=== PATIENT | female | born 1960 | race Caucasian/White ===

== ENCOUNTER 2019-09-07 15:51 | Emergency (ER) | payer MEDICAID, SELFPAY ==
--- NOTE | 2019-09-07 16:30 | HMH.EDUTC ---
[facility] [place] Impression: COPD exacerbation Disposition: Home, Self-Care Condition on Discharge: Good Instructions: How to Quit Tobacco Products, Chronic Obstructive Pulmonary Disease, DI for Chronic Obstructive Pulmonary Disease Additional Instructions: Drink plenty of fluids. Take tylenol or ibuprofen for pain or fever. Take the medications as directed. Follow up with your regular doctor. GO TO THE ER FOR ANY WORSENING SYMPTOMS Prescriptions: Albuterol Sulfate [Albuterol Sulfate Hfa] 2 puffs IH Q6HP PRN 30 Days #1 [email or web address] PRN Reason: Shortness Of Breath Transmission Status: Pending to [facility] predniSONE [Prednisone 20mg Tab] 20 mg PO BID 5 Days #10 tab Transmission Status: Pending to [facility] Azithromycin [Z-Scott 250mg Tab*] 250 mg PO UD DOSE PK #6 tab Transmission Status: Pending to [facility] Referrals: PCP,No [Primary Care Provider] - Time of Disposition: 16:48 Medical Decision Making - Medical Records Medical records reviewed: No: I reviewed the patient's medical records. - Gary Inquiry Pt receiving controlled substance: No Vital Signs: 09/07/19 16:36 Temperature 98.5 F Temperature Source Oral Pulse Rate [Right Brachial] 74 Respiratory Rate 20 Blood Pressure [Right Arm] 181/99 H Blood Pressure Mean [Right Arm] 126 Blood Pressure Source [Right Arm] Automatic Cuff Blood Pressure Position [Right Arm] Sitting 02 Sat by Pulse Oximetry 97 Oxygen Delivery Method Room Air [facility] [place] - General Stated complaint: SOB,Cough Time Seen by Provider: 09/07/19 16:40 - History of Present Illness Provider Complaint: She c/o cough and congestion for the past 4 days. She has a history of copd. She continues to smoke cigarettes. - Related Data Previous Rx's Medication Instructions Recorded Albuterol Sulfate [Albuterol 2 puffs IH Q6HP PRN 30 Days #1 09/07/19 Sulfate Hfa] [email or web address] Azithromycin [Z-Scott 250mg Tab*] 250 mg PO UD DOSE PK #6 tab 09/07/19 predniSONE [Prednisone 20mg 20 mg PO BID 5 Days #10 tab 09/07/19 Tab] Allergies Allergy/AdvReac Type Severity Reaction Status Date / Time No Known Allergies Allergy Verified 09/07/19 16:39 [facility] History - Hepatitis A Screen Attestation statement:: This patient has been screened for Hepatitis A risk factors. I have reviewed the patient's past medical history: Yes ROS Obtained: Yes All systems reviewed & no additional complaints - Constitutional Constitutional: Denies chills, Denies fever(s), Reports poor appetite, Denies malaise - Eyes Eyes: Denies eye discharge - ENT Ears, Nose, Mouth, and Throat: Denies dizziness, Denies otalgia, Reports sore throat - Cardiovascular Cardiovascular: Denies chest pain - Respiratory Respiratory: Yes chest congestion, Yes cough, No dyspnea, No coughing up blood, No stridor, No wheezing Physical Exam - General General appearance: alert, in no apparent distress - Head Head exam: atraumatic, normocephalic, normal inspection - Eye Eye exam: Present: normal appearance, PERRL, EOMI - ENT ENT exam: Present: normal exam, normal oropharynx, mucous membranes moist, TM's normal bilaterally, normal external ear exam - Neck Neck exam: Present: normal inspection, full ROM, trachea midline. Absent: meningismus, lymphadenopathy - Chest Chest inspection: Present: normal inspection, symmetric chest wall rise. Absent: tenderness - Respiratory Respiratory exam: Present: normal lung sounds bilaterally. Absent: respiratory distress - Cardiovascular Cardiovascular exam: Present: regular rate, normal rhythm. Absent: JVD - Abdominal Exam Abdominal exam: Present: soft, normal bowel sounds. Absent: distention, tenderness, guarding - Extremities Exam Extremities exam: Present: normal inspection, full ROM, normal capillary refill. Absent: calf tenderness - Back Exam Back exam: Present: normal inspection. Absent: tende
[2019-09-07 16:36] VITALS: BP 181/99; PULSE 74; RESP 20; TEMP 36.9; O2SAT 97; BMI 22.4
[2019-09-07 16:54] VITALS: BP 181/99; PULSE 74; RESP 20; TEMP 36.9; O2SAT 97
== END 2019-09-07 16:58 | disposition home or self-care (01) ==
PROVIDERS: Emergency Provider Nurse Practitioner Family
DX: J44.1 Chronic obstructive pulmonary disease with (acute) exacerbation (principal); F17.210 Nicotine dependence, cigarettes, uncomplicated; Z79.899 Other long term (current) drug therapy
CPT/HCPCS: 99201

== ENCOUNTER → 2020-05-15 11:12 | Outpatient (POV) | payer MEDICAID, SELFPAY | PROVIDERS: Visit Provider Nurse Practitioner Family | DX: Z00.00 Encounter for general adult medical examination without abnormal findings (principal) ==

== ENCOUNTER 2023-01-03 19:15 | Emergency (ER) | payer MEDICAID, SELFPAY ==
[2023-01-03] VITALS (7 sets, daily range): BP systolic 160–192; BP diastolic 83–97; PULSE 53–73; RESP 18; TEMP 36.4–36.6; O2SAT 94–97; BMI 18.8
--- NOTE | 2023-01-03 19:31 | CT_ITS ---
PROCEDURE INFORMATION: Exam: CT Abdomen And Pelvis With Contrast Exam date and time: 01/03/2023 9:05 PM Age: 62 years old Clinical indication: Abdominal pain; Additional info: Lower abdominal pain TECHNIQUE: Imaging protocol: Computed tomography of the abdomen and pelvis with contrast. Radiation optimization: All CT scans at this facility use at least one of these dose optimization techniques: automated exposure control; mA and/or kV adjustment per patient size (includes targeted exams where dose is matched to clinical indication); or iterative reconstruction. Contrast material: ISOVUE; Contrast volume: 70 ml; Contrast route: IV; REPORTING DATA: Count of CT and Cardiac NM exams in prior 12 months: This patient has received 0 known CTs and 0 known cardiac nuclear medicine studies in the 12 months prior to the current study. COMPARISON: No relevant prior studies available. FINDINGS: Liver: Normal. No mass. Gallbladder and bile ducts: Small calcified gallstones noted in the gallbladder. Gallbladder appears mildly distended. No significant gallbladder wall thickening. Mild diffuse biliary ductal dilation. Pancreas: Normal. No ductal dilation. Spleen: Normal. No splenomegaly. Adrenal glands: Normal. No mass. Kidneys and ureters: Normal. No hydronephrosis. Stomach and bowel: Unremarkable. No obstruction. No mucosal thickening. Appendix: No evidence of appendicitis. Intraperitoneal space: Unremarkable. No free air. No significant fluid collection. Vasculature: Significant diffuse mural thrombus and scattered atherosclerotic calcification of the aorta and iliac arteries. No evidence of aneurysm or dissection. Lymph nodes: Unremarkable. No enlarged lymph nodes. Urinary bladder: Unremarkable as visualized. Reproductive: Unremarkable as visualized. Bones/joints: Unremarkable. No acute fracture. Soft tissues: Unremarkable. IMPRESSION: 1. Cholelithiasis with mildly distended gallbladder and mild biliary ductal dilation. No calcified intraductal stone evident. 2. Significant atherosclerotic changes of the aorta without evidence of aneurysm or dissection.
--- NOTE | 2023-01-03 19:31 | CT_ITS ---
PROCEDURE INFORMATION: Exam: CTA Chest With Contrast Exam date and time: 01/03/2023 9:05 PM Age: 62 years old Clinical indication: Cough and shortness of breath; Additional info: Cough, SOA TECHNIQUE: Imaging protocol: Computed tomographic angiography of the chest with contrast. Exam focused on the arteries. 3D rendering (Not supervised by radiologist): MIP and/or 3D reconstructed images were created by the technologist. Radiation optimization: All CT scans at this facility use at least one of these dose optimization techniques: automated exposure control; mA and/or kV adjustment per patient size (includes targeted exams where dose is matched to clinical indication); or iterative reconstruction. Contrast material: ISOVUE; Contrast volume: 70 ml; Contrast route: INTRAVENOUS (IV); REPORTING DATA: Count of CT and Cardiac NM exams in prior 12 months: This patient has received 0 known CTs and 0 known cardiac nuclear medicine studies in the 12 months prior to the current study. COMPARISON: No relevant prior studies available. FINDINGS: Pulmonary arteries: Normal. No pulmonary emboli. Aorta: Mild atherosclerotic calcification of the aorta. No evidence of aneurysm or dissection. Thyroid: Thyroid gland appears moderately enlarged but otherwise unremarkable. Lungs: Mild changes of emphysema in the upper lungs. Small right lower lobe calcified granuloma. 6.4 mm subpleural noncalcified nodule in the posterior left lower lobe (axial image 78). 4 mm noncalcified nodule in the posterior left lung apex (axial image 29). Mild linear subpleural scarring or atelectasis in the right lung apex. Tiny (1-2 mm) subpleural nodules in the posterior portion of the right upper lobe (axial image 36) and superior segment of the right lower lobe (axial image 43). Pleural spaces: Unremarkable. No pneumothorax. No pleural effusion. Heart: Unremarkable. No cardiomegaly. No pericardial effusion. Lymph nodes: Unremarkable. No enlarged lymph nodes. Bones/joints: Mild degenerative disc changes throughout the thoracic spine. No vertebral body compression or acute fracture. Soft tissues: Unremarkable. IMPRESSION: 1. No evidence of pulmonary embolus or other acute abnormality in the chest 2. Scattered small bilateral pulmonary nodules as described, the largest noncalcified nodule measuring 6.4 mm in the left lower lobe. For patients at low risk (minimal or absent history of smoking and of other known risk factors), recommend CT Chest at 3-6 months, then consider CT Chest at 18-24 months. For patients at high risk (history of smoking or of other known risk factors), recommend CT Chest at 3-6 months, then CT Chest at 18-24 months. (Reference: Chanelle) 3. Moderate thyromegaly without focal evident lesion. References: Chanelle Hoffman, et al. Guidelines for Management of Incidental Pulmonary Nodules Detected on CT Images: From the Fleischner Society 2017. Radiology. 2017;284(1):228-243. COMMENTS: In the absence of a history or active diagnosis of lung cancer, it is recommended that this patient with emphysema be evaluated for enrollment in a low dose CT lung cancer screening program.
--- NOTE | 2023-01-03 19:35 | HMH.EDGENADL ---
Discharge Plan Disposition Patient Disposition: Home, Self-Care Condition: Good Prescriptions Prescriptions: New ipratropium-albuterol 20-100 mcg/actuation mist 1 puff inhalation Q4H PRN (Reason: shortness of breath or wheezing) Qty: 4 0RF prednisone 50 mg tablet 50 mg PO DAILY 5 Days Qty: 5 0RF ondansetron 4 mg tablet,disintegrating 4 mg PO Q8H PRN (Reason: nausea and vomiting) 4 Days Qty: 12 0RF Referrals Follow up/Referrals: Provider,Referral, MD [Primary Care Provider] - See instructions Activity Restrictions/Add. Instructions Additional Instructions/Restrictions: You were evaluated in the emergency department today. You have incidental findings on your imaging of multiple pulmonary nodules, and enlarged thyroid gland, and gallstones. I feel that your symptoms at this time are related to COVID-19 as well as a COPD exacerbation. Please roll picker your prescriptions at the pharmacy and use them as prescribed. Take Tylenol and ibuprofen at home as needed for pain and fever. Hydrate is much as possible. Return to the emergency department for new or worsening symptoms. Clinical Impressions Clinical Impression: Multiple pulmonary nodules, Acute exacerbation of chronic obstructive pulmonary disease, Abdominal pain, Thyromegaly, Cough, Gallstones Stand Alone Forms Stand Alone Forms: Work/School Release Instructions Patient Instructions: DI for Chronic Obstructive Pulmonary Disease, DI for Acute Abdominal Pain, DI for COVID-19 (Suspected or Confirmed ) Discharge ED Provider: Deanna Figueredo General Adult HPI General Chief complaint: Abdominal Pain Stated complaint: shakey, weakness, cough Time Seen by Provider: 01/03/23 19:23 History of Present Illness HPI narrative: This patient is a 62-year-old female who denies significant past medical history presenting to the emergency department for evaluation with concern for chills, shaking all over, cough, shortness of breath, and lower abdominal pain that started yesterday. She denies any known history of COPD or cardiopulmonary disease, but it was like she was evaluated in urgent treatment center before for presumed COPD exacerbation. She denies any nausea, vomiting, changes in bowel movements, dysuria, polyuria, rashes, or swelling. Nothing seems to make her symptoms better or worse. Related Data Previous Rx's Medication Instructions Recorded ipratropium 20 mcg-albuterol 100 1 puff inhalation Q4H PRN 01/03/23 mcg/actuation mist for inhalation shortness of breath or wheezing #4 grams ondansetron 4 mg disintegrating 4 mg PO Q8H PRN nausea and 01/03/23 tablet vomiting 4 days #12 tabs prednisone 50 mg tablet 50 mg PO DAILY 5 days #5 tabs 01/03/23 Allergies Allergy/AdvReac Type Severity Reaction Status Date / Time No Known Allergies Allergy Verified 06/22/20 13:55 [facility] Disclaimer: The information contained in this section may have been updated after the patient was seen, as this information can be updated by other users. Social History Smoking Status: Current every day smoker tobacco type: cigarettes packs per day: 1 alcohol intake: never current occupational status: other Travel in the last 8 weeks: None ROS Obtained: Yes All systems reviewed & no additional complaints except as documented Physical Exam General General appearance: alert Comment: Tremulous. Uncomfortable appearing Head Head exam: atraumatic and normocephalic Eye Eye exam: Present normal appearance, PERRL and EOMI ENT ENT exam: Present normal exam, normal oropharynx, mucous membranes moist and normal external ear exam Neck Neck exam: Present normal inspection, full ROM and trachea midline; Absent tenderness Chest Chest inspection: Present normal inspection and symmetric chest wall rise; Absent tenderness Respiratory Respiratory exam: Present wheezes (Expiratory wheezing noted); Absent respiratory di
--- NOTE | 2023-01-03 19:38 | PC.NURSE ---
pt reports congestion and non productive cough
[2023-01-03 19:39] LABS: Microscopic, Urine URINE MICROSCOPIC (MICROSCOPIC)
[2023-01-03 19:45] LABS: Basophils % 0.7 % (0.1-2.0); Eosinophils # 0.1 K/mm3 (0.0-0.4); Eosinophils % 1.3 % (0.1-12.0); Hematocrit 46.7 % (37.0-47.0); Hemoglobin 15.5 g/dL (12.2-16.2); Lymphocytes # 1.2 K/mm3 (0.7-4.5); Lymphocytes % 25.8 % (10-50); Mean Corpuscular HGB Conc 33.1 g/dL (31.8-35.4); Mean Corpuscular Hemoglobin 30.3 pg (27.0-31.2); Mean Corpuscular Volume 91.4 fl (81-99); Mean Platelet Volume 8.1 fl (7.4-10.4); Monocytes # 0.2 K/mm3 (0.1-1.0); Neutrophils # 3.1 K/mm3 (1.8-7.8); Neutrophils % 67.2 % (37.0-80.0); Platelet Count 124 K/mm3 (142-424); Red Blood Count 5.11 M/mm3 (4.20-5.40); Red Cell Distribution Width 13.9 % (11.5-17.5); White Blood Count 4.6 K/mm3 (4.8-10.8)
--- NOTE | 2023-01-03 19:45 | ECG_ITS ---
APPROVED REPORT Exam: Resting ECG HR:54 bpm ECG Measurements Heart Rate 54 AXES WI 137 P 80 QRSd 92 QRS 86 QT 420 T 63 QTc 406 Conclusion SINUS BRADYCARDIA BORDERLINE ECG UNCONFIRMED REPORT Electronically signed by : Russel Nguyen MD 01/05/2023 08:40:47
[2023-01-03 19:50] LABS: Chloride 104 mmol/L (98-107); Sodium 139 mmol/L (136-145)
[2023-01-03 19:52] LABS: Alanine Aminotransferase 33 U/L (12-78); Aspartate Amino Transferase 66 U/L (14-36); Blood Urea Nitrogen 4 mg/dl (7-17); Creatinine Clearance Estimated 46 mL/min (50-200); Estimated Glomerular Filt Rate 125 ml/min (>60); GFR (African American) 151 ML/MIN (>60)
[2023-01-03 19:53] LABS: Albumin Level 3.9 g/dl (3.5-5.0); Albumin/Globulin Ratio 0.9 (1.1-1.8); Alkaline Phosphatase 103 U/L (38-126); Bilirubin,Total 0.8 mg/dl (0.2-1.3); Calcium 8.7 mg/dl (8.4-10.2); Carbon Dioxide 29 mmol/L (22.0-30.0); Globulin 4.2 g/dL (1.3-3.2); Glucose 116 mg/dl (74-100); Lipase 180 U/L (23-300); Total Protein,Serum 8.1 g/dl (6.3-8.2)
[2023-01-03 20:04] LABS: Appearance,Urine CLEAR (Clear); Bilirubin,Urine Negative (Negative); Blood, Urine Negative (Negative); Color,Urine YELLOW (Yellow); Glucose,Urine (UA) Negative (Negative); Ketones,Urine Negative (Negative); Leukocyte Esterase,Urine TRACE (Negative); Nitrate,Urine Negative (Negative); PH,Urine 7.5 (5.0-8.5); Protein,Urine TRACE (Negative)
[2023-01-03 20:18] LABS: Bacteria,Urine Trace /lpf; Squamous Epithelial Cell,Urine Occasional #/hpf (0-5)
[2023-01-03 20:21] LABS: Influenza A, PCR Not Detected (NotDetected); Influenza B, PCR Not Detected (NotDetected)
--- NOTE | 2023-01-03 20:50 | PC.NURSE ---
Pt up ambulating to bathroom with steady gait. denies any needs.
[2023-01-03 21:00] LABS: Coronavirus 19, PCR Detected (NotDetected)
--- NOTE | 2023-01-03 21:05 | PC.NURSE ---
pt eating DQ that family brought in, tolerating well
[2023-01-03 21:13] LABS: T4 (Thyroxine) 16.3 ug/dl (5.53-11.0)
[2023-01-03 21:27] LABS: Thyroid Stimulating Hormone 0.85 uIU/mL (0.465-4.68)
== END 2023-01-03 21:42 | disposition home or self-care (01) ==
PROVIDERS: Emergency Provider Emergency Medicine
DX: U07.1 COVID-19 (principal); J44.1 Chronic obstructive pulmonary disease with (acute) exacerbation; F17.210 Nicotine dependence, cigarettes, uncomplicated; R05.9 Cough, unspecified; R00.1 Bradycardia, unspecified; R10.30 Lower abdominal pain, unspecified; R06.02 Shortness of breath; R68.83 Chills (without fever); R91.8 Other nonspecific abnormal finding of lung field; E01.0 Iodine-deficiency related diffuse (endemic) goiter; K80.20 Calculus of gallbladder without cholecystitis without obstruction
CPT/HCPCS: 71275; 74177; 80053; 81001; 83605; 83690; 84436; 84443; 85025; 87636; 93005; 96361; 96374; 96375; 99285; J0131; J2405; Q9967

== ENCOUNTER 2023-07-31 22:19 | Emergency (ER) | payer MEDICAID, SELFPAY ==
--- NOTE | 2023-07-31 22:17 | ECG_ITS ---
APPROVED REPORT Exam: Resting ECG HR:81 bpm ECG Measurements Heart Rate [address] 129 P 90 QRSd 98 QRS 84 QT 378 T 69 QTc 415 Conclusion SINUS RHYTHM NONSPECIFIC T-WAVE ABNORMALITY Motion artifact degrades study Electronically signed by : SERA VERDUZCO, 07/31/2023 23:44:05
[2023-07-31 22:19] VITALS: BP 191/105; PULSE 83; RESP 22; TEMP 36.8; O2SAT 94; BMI 18.8
[2023-07-31 22:31] VITALS: BP 191/101; PULSE 68; O2SAT 97
--- NOTE | 2023-07-31 22:31 | ED_ITS ---
<Statement entered by Deanna Figueredo DO - 07/31/23 23:28> I was consulted by the HOLLI, and we discussed the complexity of the problems being addressed. I approved the treatment and management plan for this patient's care in the emergency department, thus performing a substantive portion of the medical decision making. Deanna Figueredo DO Discharge Plan Disposition Patient Disposition: Home, Self-Care Prescriptions Prescriptions: New prednisone 50 mg tablet 50 mg PO DAILY 5 Days Qty: 5 0RF No Action ipratropium-albuterol 20-100 mcg/actuation mist 1 puff inhalation Q4H PRN (Reason: shortness of breath or wheezing) Qty: 4 0RF prednisone 50 mg tablet 50 mg PO DAILY 5 Days Qty: 5 0RF ondansetron 4 mg tablet,disintegrating 4 mg PO Q8H PRN (Reason: nausea and vomiting) 4 Days Qty: 12 0RF Referrals Follow up/Referrals: Provider,Referral, MD [Primary Care Provider] - See instructions Activity Restrictions/Add. Instructions Additional Instructions/Restrictions: Please follow-up with your primary care provider. Please take steroids as prescribed. Please use albuterol inhaler as needed. Clinical Impressions Clinical Impression: COPD exacerbation Discharge ED Provider: Jamel Maria General Adult HPI <NAY Ash - Last Filed: 07/31/23 22:43> General Chief complaint: Chest Pain Stated complaint: CP Time Seen by Provider: 07/31/23 22:21 History of Present Illness HPI narrative: Patient presents for evaluation of chest and abdominal pain. Patient states that she does not have a primary care doctor is on no chronic medications other than Suboxone and is still a pack-a-day smoker. She presents for acute onset of chest pain that has been intermittent started this morning. Currently at the time my exam she has 0 pain. Patient also reports that she has had 2 to 3 days of suprapubic/lower quadrant abdominal pain as well. Patient denies fever chills hemoptysis hematochezia melena nausea vomiting diarrhea. She does have a wet coarse cough at the time of my exam. Related Data Previous Rx's Medication Instructions Recorded ipratropium 20 mcg-albuterol 100 1 puff inhalation Q4H PRN 01/03/23 mcg/actuation mist for inhalation shortness of breath or wheezing #4 grams ondansetron 4 mg disintegrating 4 mg PO Q8H PRN nausea and 01/03/23 tablet vomiting 4 days #12 tabs prednisone 50 mg tablet 50 mg PO DAILY 5 days #5 tabs 01/03/23 prednisone 50 mg tablet 50 mg PO DAILY 5 days #5 tabs 08/01/23 Allergies Allergy/AdvReac Type Severity Reaction Status Date / Time No Known Allergies Allergy Verified 06/22/20 13:55 PFSH <NAY Ash - Last Filed: 07/31/23 22:43> [facility] Disclaimer: The information contained in this section may have been updated after the patient was seen, as this information can be updated by other users. Social History Smoking Status: Current every day smoker tobacco type: cigarettes packs per day: 1 alcohol intake: never current occupational status: other Travel in the last 8 weeks: None <NAY Ash Last Filed: 07/31/23 22:43> ROS Obtained: Yes Systems reviewed as appropriate & no additional complaints except as documented Physical Exam <NAY Ash Last Filed: 07/31/23 22:43> General General appearance: alert and in no apparent distress Respiratory Respiratory exam: Absent normal lung sounds bilaterally (And expiratory wheezes and rhonchi) Cardiovascular Cardiovascular exam: Present regular rate, normal rhythm and normal heart sounds Abdominal Exam Abdominal exam: Present soft, tenderness and normal bowel sounds; Absent guarding, rebound or rigidity Extremities Exam Extremities exam: Present normal inspection and full ROM Back Exam Back exam: Present normal inspection and full ROM; Absent tenderness, CVA tenderness (R) or CVA tenderness (L) Neurological Exam Neurological exam: Present alert and oriented X3 Medical Decision Making <NAY Ash - Last Filed: 07/31/23 22:43> Medical Records Medical records reviewed: Yes I reviewed the patient's medical records. Gary Inquiry Pt receiving controlled substance: No Vital Signs: 07/31/23 22:19 07/31/23 22:31 07/31/23 22:39 Temperature 98.2 F Temperature Source Oral Pulse Rate 68 65 Pulse Rate [Left] 83 Respiratory Rate 22 18 Blood Pressure 191/101 H 126/69 Blood Pressure [Right Arm] 191/105 H Blood Pressure Mean [Right Arm] 133 Blood Pressure Source Automatic Cuff Blood Pressure Position Sitting 02 Sat by Pulse Oximetry 94 L 97 95 Oxygen Delivery Method Room Air Room Air 08/01/23 01:16 Temperature Temperature Source Pulse Rate 59 L Pulse Rate [Left] Respiratory Rate 16 Blood Pressure 152/74 H Blood Pressure [Right Arm] Blood Pressure Mean [Right Arm] Blood Pressure Source Automatic Cuff Blood Pressure Position Sitting 02 Sat by Pulse Oximetry 96 Oxygen Delivery Method Room Air Lab Data Lab results reviewed: Yes I reviewed the patient's lab results. Lab Results 07/31/23 22:23: WBC 5.8, RBC 5.20, Hgb 15.2, Hct 48.5 H, MCV 93.3, MCH 29.2, M CHC 31.3 L, RDW 14.4, Plt Count 161, MPV 8.3, Neut % (Auto) 65.9, Lymph % (Auto) 25.9, [place] % (Auto) 6.0, Eos % (Auto) 1.0, Baso % (Auto) 1.3, Neut # (Auto) 3.8, Lymph # (Auto) 1.5, [place] # (Auto) 0.4, Eos # (Auto) 0.1, Baso # (Auto) 0.1, D- Dimer 0.33, Sodium 138, Potassium 5.2 H, Chloride 102, Carbon Dioxide 31 H, Anion Gap 10.2, BUN 6 L, Creatinine 0.60, Estimated Creat Clear 46, Estimated GFR 101, Est GFR ( Amer) 123, Glucose 135 H, Calcium 9.6, Magnesium 1.8, Total Bilirubin 1.0, AST 56 H, ALT 34, Alkaline Phosphatase 135 H, Troponin I < 0.01, NT-Pro-B Natriuret Pep 139 H, Total Protein 8.4 H, Albumin 4.2, Globulin 4.2 H, Albumin/Globulin Ratio 1.0 L, Lipase 207 07/31/23 22:37: VBG pH 7.28 L, VBG pCO2 61.7 H, VBG pO2 36.8, VBG HCO3 28.3, VBG Total CO2 30.2 H, VBG O2 Saturation 68.4, VBG Base Excess 1.6, VBG Lactic Acid 3.4 H 07/31/23 23:50: Urine Color Yellow, Urine Appearance Clear, Urine pH 7.5, Ur Specific [place] 1.010, Urine Protein Negative, Urine Glucose (UA) Negative, Urine Ketones Negative, Urine Blood Negative, Urine Nitrate Negative, Urine Bilirubin Negative, Urine Urobilinogen 0.2, Ur Leukocyte Esterase Negative, Urine WBC 3-5, Ur Squamous Epith Cells 3-5, Urine Bacteria 1+ 08/01/23 01:15: Troponin I < 0.01 07/31/23 22:23 07/31/23 22:23 Orders (Tests/Meds): ED MEDICATIONS Generic Name Dose Route Start Last Admin Trade Name Freq PRN Reason Stop Dose Admin Albuterol Sulfate 2 puff 08/01/23 02:00 Albuterol-Hfa 90mcg/Puff Inhaler 8gm IH 08/31/23 01:59 Q4HP PRN Shortness Of Breath Discontinued Medications Generic Name Dose Route Start Last Admin Trade Name Freq PRN Reason Stop Dose Admin Acetaminophen 1,000 mg 07/31/23 22:36 07/31/23 22:58 Acetaminophen 1,000mg/100ml Vial IV 07/31/23 22:37 1,000 mg ONCE ONE Administration Albuterol/Ipratropium 3 ml 07/31/23 22:36 Ipratropium/Albuterol 3 Ml Neb IH 07/31/23 22:37 ONCE ONE Dexamethasone Sodium Phosphate 10 mg 07/31/23 22:36 07/31/23 23:11 Dexamethasone 4mg/Ml 5ml Mdv IV 07/31/23 22:37 10 mg ONCE ONE Administration Lactated Ringer's 1,000 mls @ 999 mls/hr 07/31/23 22:36 07/31/23 22:54 Lactated Ringer's 1000 Ml Bag IV 07/31/23 23:36 999 mls/hr .Q1H1M ONE Administration Ketorolac Tromethamine 15 mg 07/31/23 22:36 07/31/23 22:56 Ketorolac 30mg/Ml Vial IV 07/31/23 22:37 15 mg ONCE ONE Administration ORDERS Category Date Time Status Chest XR -- portable [XR chest portable] Stat Exams 07/31/23 22:36 Completed BNP [NT Pro Brain Natriuretic Pep.] Stat Lab 07/31/23 22:23 Completed CBC w/Auto Diff [Complete Blood Count Auto Diff] Stat Lab 06/06/24 22:23 Completed CMP [Comprehensive Metabolic Panel] Stat Lab 07/31/23 22:23 Completed D-Dimer Stat Lab 07/31/23 22:23 Completed Lipase Stat Lab 07/31/23 22:23 Completed Magnesium Stat Lab 07/31/23 22:23 Completed Trop I [Troponin I] Stat Lab 07/31/23 22:23 Completed Troponin I Q3H Lab 08/01/23 01:15 Completed Troponin I Q3H Lab 08/01/23 04:45 Ordered UA [Urinalysis and Microscopic] Stat Lab 07/31/23 23:50 Completed VBG [Venous Blood Gas] Stat RT 07/31/23 22:37 Completed Medical Decision Narrative: In summary patient is a 62-year-old female who presents to the emergency department for evaluation of chest and abdominal pain. Patient is patient is hypertensive on arrival but with a normal heart rate respiratory rate satting at 97% on room air upon arrival, and afebrile. Physical exam is remarkable for chest pain is nonreproducible on exam located substernally but absent currently. Patient also has mild tenderness to palpation suprapubic area without rebound or guarding rigidity. Bowel sounds are normal active. Auscultation of breath sounds reveals end expiratory wheezes and rhonchi in all 4 renteria.. Differential diagnosis includes ACS versus PE versus pneumonia versus COPD exacerbation versus UTI versus constipation versus kidney stone versus acute pancreatitis etc. Initial workup will be conducted with hematologic labs plain film chest x- ray urinalysis. Initial interventions include crystalloid bolus Toradol Tylenol Decadron DuoNeb. Initial workup initiated and pending at the time of handoff at [address] Maria <Deanna Figueredo, DO - Last Filed: 07/31/23 23:30> Vital Signs: 07/31/23 22:19 07/31/23 22:31 07/31/23 22:39 Temperature 98.2 F Temperature Source Oral Pulse Rate 68 65 Pulse Rate [Left] 83 Respiratory Rate 22 18 Blood Pressure 191/101 H 126/69 Blood Pressure [Right Arm] 191/105 H Blood Pressure Mean [Right Arm] 133 Blood Pressure Source Automatic Cuff Blood Pressure Position Sitting 02 Sat by Pulse Oximetry 94 L 97 95 Oxygen Delivery Method Room Air Room Air 08/01/23 01:16 Temperature Temperature Source Pulse Rate 59 L Pulse Rate [Left] Respiratory Rate 16 Blood Pressure 152/74 H Blood Pressure [Right Arm] Blood Pressure Mean [Right Arm] Blood Pressure Source Automatic Cuff Blood Pressure Position Sitting 02 Sat by Pulse Oximetry 96 Oxygen Delivery Method Room Air Lab Data Lab Results 07/31/23 22:23: WBC 5.8, RBC 5.20, Hgb 15.2, Hct 48.5 H, MCV 93.3, MCH 29.2, M CHC 31.3 L, RDW 14.4, Plt Count 161, MPV 8.3, Neut % (Auto) 65.9, Lymph % (Auto) 25.9, [place] % (Auto) 6.0, Eos % (Auto) 1.0, Baso % (Auto) 1.3, Neut # (Auto) 3.8, Lymph # (Auto) 1.5, [place] # (Auto) 0.4, Eos # (Auto) 0.1, Baso # (Auto) 0.1, D- Dimer 0.33, Sodium 138, Potassium 5.2 H, Chloride 102, Carbon Dioxide 31 H, Anion Gap 10.2, BUN 6 L, Creatinine 0.60, Estimated Creat Clear 46, Estimated GFR 101, Est GFR ( Amer) 123, Glucose 135 H, Calcium 9.6, Magnesium 1.8, Total Bilirubin 1.0, AST 56 H, ALT 34, Alkaline Phosphatase 135 H, Troponin I < 0.01, NT-Pro-B Natriuret Pep 139 H, Total Protein 8.4 H, Albumin 4.2, Globulin 4.2 H, Albumin/Globulin Ratio 1.0 L, Lipase 207 07/31/23 22:37: VBG pH 7.28 L, VBG pCO2 61.7 H, VBG pO2 36.8, VBG HCO3 28.3, VBG Total CO2 30.2 H, VBG O2 Saturation 68.4, VBG Base Excess 1.6, VBG Lactic Acid 3.4 H 07/31/23 23:50: Urine Color Yellow, Urine Appearance Clear, Urine pH 7.5, Ur Specific [place] 1.010, Urine Protein Negative, Urine Glucose (UA) Negative, Urine Ketones Negative, Urine Blood Negative, Urine Nitrate Negative, Urine Bilirubin Negative, Urine Urobilinogen 0.2, Ur Leukocyte Esterase Negative, Urine WBC 3-5, Ur Squamous Epith Cells 3-5, Urine Bacteria 1+ 08/01/23 01:15: Troponin I < 0.01 Orders (Tests/Meds): ED MEDICATIONS Generic Name Dose Route Start Last Admin Trade Name Freq PRN Reason Stop Dose Admin Albuterol Sulfate 2 puff 08/01/23 02:00 Albuterol-Hfa 90mcg/Puff Inhaler 8gm IH 08/31/23 01:59 Q4HP PRN Shortness Of Breath Discontinued Medications Generic Name Dose Route Start Last Admin Trade Name Freq PRN Reason Stop Dose Admin Acetaminophen 1,000 mg 07/31/23 22:36 07/31/23 22:58 Acetaminophen 1,000mg/100ml Vial IV 07/31/23 22:37 1,000 mg ONCE ONE Administration Albuterol/Ipratropium 3 ml 07/31/23 22:36 Ipratropium/Albuterol 3 Ml Neb IH 07/31/23 22:37 ONCE ONE Dexamethasone Sodium Phosphate 10 mg 07/31/23 22:36 07/31/23 23:11 Dexamethasone 4mg/Ml 5ml Mdv IV 07/31/23 22:37 10 mg ONCE ONE Administration Lactated Ringer's 1,000 mls @ 999 mls/hr 07/31/23 22:36 07/31/23 22:54 Lactated Ringer's 1000 Ml Bag IV 07/31/23 23:36 999 mls/hr .Q1H1M ONE Administration Ketorolac Tromethamine 15 mg 07/31/23 22:36 07/31/23 22:56 Ketorolac 30mg/Ml Vial IV 07/31/23 22:37 15 mg ONCE ONE Administration ORDERS Category Date Time Status Chest XR -- portable [XR chest portable] Stat Exams 07/31/23 22:36 Completed BNP [NT Pro Brain Natriuretic Pep.] Stat Lab 07/31/23 22:23 Completed CBC w/Auto Diff [Complete Blood Count Auto Diff] Stat Lab 07/31/23 22:23 Completed CMP [Comprehensive Metabolic Panel] Stat Lab 07/31/23 22:23 Completed D-Dimer Stat Lab 07/31/23 22:23 Completed Lipase Stat Lab 07/31/23 22:23 Completed Magnesium Stat Lab 07/31/23 22:23 Completed Trop I [Troponin I] Stat Lab 07/31/23 22:23 Completed Troponin I Q3H Lab 08/01/23 01:15 Completed Troponin I Q3H Lab 08/01/23 04:45 Ordered UA [Urinalysis and Microscopic] Stat Lab 07/31/23 23:50 Completed VBG [Venous Blood Gas] Stat RT 07/31/23 22:37 Completed ECG Data Tracing #1: I reviewed this ECG and interpreted as documented below: Sinus bradycardia with a ventricular rate of [address] changes concerning for ischemia. ECG initial impression date: 07/31/23 ECG initial impression time: 23:24 Medical Decision Narrative: In summary patient is a 62-year-old female who presents to the emergency department for evaluation of chest and abdominal pain. Patient is patient is hypertensive on arrival but with a normal heart rate respiratory rate satting at 97% on room air upon arrival, and afebrile. Physical exam is remarkable for chest pain is nonreproducible on exam located substernally but absent currently. Patient also has mild tenderness to palpation suprapubic area without rebound or guarding rigidity. Bowel sounds are normal active. Auscultation of breath sounds reveals end expiratory wheezes and rhonchi in all 4 renteria.. Differential diagnosis includes ACS versus PE versus pneumonia versus COPD exacerbation versus UTI versus constipation versus kidney stone versus acute pancreatitis etc. Initial workup will be conducted with hematologic labs plain film chest x- ray urinalysis. Initial interventions include crystalloid bolus Toradol Tylenol Decadron DuoNeb. Initial workup initiated and pending at the time of handoff at [address] Candace Figueredo, DO: I participated in initial care of the patient. Concern for COPD exacerbation, as the patient had significant improvement after administration of DuoNeb's and feels much better. Hypotension resolved with improvement in respiratory status. No clear signs of volume overload to suggest CHF as a cause. I feel that she likely has COPD exacerbation. Ultimately, patient care was signed out to the oncoming provider, Dr. Maria, pending remainder of lab evaluation and disposition. <Jamel Marai MD - Last Filed: 08/01/23 02:03> Vital Signs: 07/31/23 22:19 07/31/23 22:31 07/31/23 22:39 Temperature 98.2 F Temperature Source Oral Pulse Rate 68 65 Pulse Rate [Left] 83 Respiratory Rate 22 18 Blood Pressure 191/101 H 126/69 Blood Pressure [Right Arm] 191/105 H Blood Pressure Mean [Right Arm] 133 Blood Pressure Source Automatic Cuff Blood Pressure Position Sitting 02 Sat by Pulse Oximetry 94 L 97 95 Oxygen Delivery Method Room Air Room Air 08/01/23 01:16 Temperature Temperature Source Pulse Rate 59 L Pulse Rate [Left] Respiratory Rate 16 Blood Pressure 152/74 H Blood Pressure [Right Arm] Blood Pressure Mean [Right Arm] Blood Pressure Source Automatic Cuff Blood Pressure Position Sitting 02 Sat by Pulse Oximetry 96 Oxygen Delivery Method Room Air Lab Data Lab Results 07/31/23 22:23: WBC 5.8, RBC 5.20, Hgb 15.2, Hct 48.5 H, MCV 93.3, MCH 29.2, M CHC 31.3 L, RDW 14.4, Plt Count 161, MPV 8.3, Neut % (Auto) 65.9, Lymph % (Auto) 25.9, [place] % (Auto) 6.0, Eos % (Auto) 1.0, Baso % (Auto) 1.3, Neut # (Auto) 3.8, Lymph # (Auto) 1.5, [place] # (Auto) 0.4, Eos # (Auto) 0.1, Baso # (Auto) 0.1, D- Dimer 0.33, Sodium 138, Potassium 5.2 H, Chloride 102, Carbon Dioxide 31 H, Anion Gap 10.2, BUN 6 L, Creatinine 0.60, Estimated Creat Clear 46, Estimated GFR 101, Est GFR ( Amer) 123, Glucose 135 H, Calcium 9.6, Magnesium 1.8, Total Bilirubin 1.0, AST 56 H, ALT 34, Alkaline Phosphatase 135 H, Troponin I < 0.01, NT-Pro-B Natriuret Pep 139 H, Total Protein 8.4 H, Albumin 4.2, Globulin 4.2 H, Albumin/Globulin Ratio 1.0 L, Lipase 207 07/31/23 22:37: VBG pH 7.28 L, VBG pCO2 61.7 H, VBG pO2 36.8, VBG HCO3 28.3, VBG Total CO2 30.2 H, VBG O2 Saturation 68.4, VBG Base Excess 1.6, VBG Lactic Acid 3.4 H 07/31/23 23:50: Urine Color Yellow, Urine Appearance Clear, Urine pH 7.5, Ur Specific [place] 1.010, Urine Protein Negative, Urine Glucose (UA) Negative, Urine Ketones Negative, Urine Blood Negative, Urine Nitrate Negative, Urine Bilirubin Negative, Urine Urobilinogen 0.2, Ur Leukocyte Esterase Negative, Urine WBC 3-5, Ur Squamous Epith Cells 3-5, Urine Bacteria 1+ 08/01/23 01:15: Troponin I < 0.01 Orders (Tests/Meds): ED MEDICATIONS Generic Name Dose Route Start Last Admin Trade Name Freq PRN Reason Stop Dose Admin Albuterol Sulfate 2 puff 08/01/23 02:00 Albuterol-Hfa 90mcg/Puff Inhaler 8gm IH 08/31/23 01:59 Q4HP PRN Shortness Of Breath Discontinued Medications Generic Name Dose Route Start Last Admin Trade Name Freq PRN Reason Stop Dose Admin Acetaminophen 1,000 mg 07/31/23 22:36 07/31/23 22:58 Acetaminophen 1,000mg/100ml Vial IV 07/31/23 22:37 1,000 mg ONCE ONE Administration Albuterol/Ipratropium 3 ml 07/31/23 22:36 Ipratropium/Albuterol 3 Ml Neb IH 07/31/23 22:37 ONCE ONE Dexamethasone Sodium Phosphate 10 mg 07/31/23 22:36 07/31/23 23:11 Dexamethasone 4mg/Ml 5ml Mdv IV 07/31/23 22:37 10 mg ONCE ONE Administration Lactated Ringer's 1,000 mls @ 999 mls/hr 07/31/23 22:36 07/31/23 22:54 Lactated Ringer's 1000 Ml Bag IV 07/31/23 23:36 999 mls/hr .Q1H1M ONE Administration Ketorolac Tromethamine 15 mg 07/31/23 22:36 07/31/23 22:56 Ketorolac 30mg/Ml Vial IV 07/31/23 22:37 15 mg ONCE ONE Administration ORDERS Category Date Time Status Chest XR -- portable [XR chest portable] Stat Exams 07/31/23 22:36 Completed BNP [NT Pro Brain Natriuretic Pep.] Stat Lab 07/31/23 22:23 Completed CBC w/Auto Diff [Complete Blood Count Auto Diff] Stat Lab 07/31/23 22:23 Completed CMP [Comprehensive Metabolic Panel] Stat Lab 07/31/23 22:23 Completed D-Dimer Stat Lab 07/31/23 22:23 Completed Lipase Stat Lab 07/31/23 22:23 Completed Magnesium Stat Lab 07/31/23 22:23 Completed Trop I [Troponin I] Stat Lab 07/31/23 22:23 Completed Troponin I Q3H Lab 08/01/23 01:15 Completed Troponin I Q3H Lab 08/01/23 04:45 Ordered UA [Urinalysis and Microscopic] Stat Lab 07/31/23 23:50 Completed VBG [Venous Blood Gas] Stat RT 07/31/23 22:37 Completed HEART Score History (anamnesis): Slightly suspicious ECG: Normal Age: >65 years Risk factors: 1-2 risk factors Troponin: </= normal limit HEART Score: 3 Medical Decision Narrative: In summary patient is a 62-year-old female who presents to the emergency department for evaluation of chest and abdominal pain. Patient is patient is hypertensive on arrival but with a normal heart rate respiratory rate satting at 97% on room air upon arrival, and afebrile. Physical exam is remarkable for chest pain is nonreproducible on exam located substernally but absent currently. Patient also has mild tenderness to palpation suprapubic area without rebound or guarding rigidity. Bowel sounds are normal active. Auscultation of breath sounds reveals end expiratory wheezes and rhonchi in all 4 renteria.. Differential diagnosis includes ACS versus PE versus pneumonia versus COPD exacerbation versus UTI versus constipation versus kidney stone versus acute pancreatitis etc. Initial workup will be conducted with hematologic labs plain film chest x- ray urinalysis. Initial interventions include crystalloid bolus Toradol Tylenol Decadron DuoNeb. Initial workup initiated and pending at the time of handoff at [address] Candace Figueredo, DO: I participated in initial care of the patient. Concern for COPD exacerbation, as the patient had significant improvement after administration of DuoNeb's and feels much better. Hypertension resolved with improvement in respiratory status. No clear signs of volume overload to suggest CHF as a cause. I feel that she likely has COPD exacerbation. Ultimately, patient care was signed out to the oncoming provider, Dr. Maria, pending remainder of lab evaluation and disposition. Candace PORTILLO: I assumed care of the patient at the time of handoff from the prior provider. On reassessment patient remains hemodynamically stable, satting appropriately on room air. She reports that her breathing feels better than when she came in. On my interpretation of labs, repeat troponin returned undetectably low, no significant leukocytosis, negative D-dimer, mildly elevated potassium, normal renal function, VBG prior to intervention showed mild respiratory acidosis. Radiograph independently interpreted by me and shows no focal opacity. Interact discussion was had with patient regarding presentation. She likely has undiagnosed COPD. She was discharged with prescription for prednisone and was given an albuterol inhaler prior to discharge. Critical Care <NAY Ash - Last Filed: 07/31/23 22:43> Critical Care Time Critical Care Time: No
--- NOTE | 2023-07-31 22:36 | XR_ITS ---
PROCEDURE INFORMATION: Exam: XR Chest Exam date and time: 07/31/2023 11:09 PM Age: 62 years old Clinical indication: Pain; Chest pressure; Additional info: Chest pain TECHNIQUE: Imaging protocol: Radiologic exam of the chest. Views: 1 view. Total images: 2 COMPARISON: CT ANGIO CHEST PE PROTOCOL 01/03/2023 9:05 PM FINDINGS: Lungs: Moderate centrilobular emphysema. Minor peripheral interstitial coarsening/fibrosis. No acute infiltrate, airspace consolidation or vascular congestion. No pulmonary edema. Calcified right basilar granuloma. Pleural spaces: Unremarkable. No pleural effusion. No pneumothorax. Heart/Mediastinum: Unremarkable. No cardiomegaly. No mediastinal widening or hilar enlargement. Bones/joints: Mild osteopenia. Other findings: Rotation to the right. IMPRESSION: 1. No radiographically acute cardiopulmonary process. 2. Moderate centrilobular emphysema.
[2023-07-31 22:39] VITALS: BP 126/69; PULSE 65; RESP 18; O2SAT 95
[2023-07-31 22:44] LABS: Basophils # 0.1 K/mm3 (0-0.2); Basophils % 1.3 % (0.1-2.0); Eosinophils # 0.1 K/mm3 (0.0-0.4); Hematocrit 48.5 % (37.0-47.0); Hemoglobin 15.2 g/dL (12.2-16.2); Lymphocytes # 1.5 K/mm3 (0.7-4.5); Lymphocytes % 25.9 % (10-50); Mean Corpuscular HGB Conc 31.3 g/dL (31.8-35.4); Mean Corpuscular Hemoglobin 29.2 pg (27.0-31.2); Mean Corpuscular Volume 93.3 fl (81-99); Mean Platelet Volume 8.3 fl (7.4-10.4); Monocytes # 0.4 K/mm3 (0.1-1.0); Neutrophils # 3.8 K/mm3 (1.8-7.8); Neutrophils % 65.9 % (37.0-80.0); Platelet Count 161 K/mm3 (142-424); Red Cell Distribution Width 14.4 % (11.5-17.5); White Blood Count 5.8 K/mm3 (4.8-10.8)
[2023-07-31 22:45] LABS: Chloride 102 mmol/L (98-107); Potassium 5.2 mmoL/L (3.5-5.1); Sodium 138 mmol/L (136-145)
[2023-07-31 22:47] LABS: VBG Base Excess 1.6 mmol/L (-2.4-2.3); VBG HCO3 28.3 mmol/L (23-30); VBG Oxygen Saturation 68.4 % (50-70); VBG PH 7.28 mmol/L (7.31-7.41); VBG PO2 36.8 mmol/L (28-40); VBG Total CO2 30.2 mmol/L (23-27)
[2023-07-31 22:48] LABS: Alanine Aminotransferase 34 U/L (12-78); Albumin Level 4.2 g/dl (3.5-5.0); Alkaline Phosphatase 135 U/L (38-126); Anion Gap 10.2 mEq/L (5-15); Aspartate Amino Transferase 56 U/L (14-36); Blood Urea Nitrogen 6 mg/dl (7-17); Calcium 9.6 mg/dl (8.4-10.2); Carbon Dioxide 31 mmol/L (22.0-30.0); Creatinine Clearance Estimated 46 mL/min (50-200); Estimated Glomerular Filt Rate 101 ml/min (>60); GFR (African American) 123 ML/MIN (>60); Globulin 4.2 g/dL (1.3-3.2); Glucose 135 mg/dl (74-100); Lipase 207 U/L (23-300); Total Protein,Serum 8.4 g/dl (6.3-8.2)
[2023-07-31 22:49] LABS: Magnesium 1.8 mg/dl (1.6-2.3)
[2023-07-31 22:51] LABS: Lactate Venous 3.4 mmol/L (0.4-2.0); VBG PCO2 61.7 mmol/L (35-51)
[2023-07-31] MEDS: LACTATED RINGERS 1000ML 1,000 ML 999 ML IV (22:54)
[2023-07-31] MEDS: KETOROLAC 30MG/ML VIAL 15 MG IV (22:56)
[2023-07-31] MEDS: ACETAMINOPHEN 1,000MG/100ML VIAL 1000 MG IV (22:58)
[2023-07-31 23:04] LABS: Troponin I < 0.01 ng/ml (0.00-0.034)
[2023-07-31] MEDS: DEXAMETHASONE 4MG/ML 5ML MDV 10 MG IV (23:11)
--- NOTE | 2023-07-31 23:12 | PC.NURSE ---
Decadron would not scan on this pt, verified with Liliana RN, note left for pharmacy
[2023-07-31 23:18] LABS: D-Dimer 0.33 ug/mL (0.0-0.5)
[2023-07-31 23:19] LABS: NT Pro Brain Natriuretic Pep. 139 pg/mL (0-125)
--- NOTE | 2023-07-31 23:34 | PC.NURSE ---
dynamap used for pt BP, monitor in room not working properly
[2023-07-31 23:54] LABS: Microscopic, Urine URINE MICROSCOPIC (MICROSCOPIC)
[2023-07-31 23:55] LABS: Appearance,Urine CLEAR (Clear); Bilirubin,Urine Negative (Negative); Blood, Urine Negative (Negative); Color,Urine YELLOW (Yellow); Glucose,Urine (UA) Negative (Negative); Ketones,Urine Negative (Negative); Leukocyte Esterase,Urine Negative (Negative); Nitrate,Urine Negative (Negative); PH,Urine 7.5 (5.0-8.5); Protein,Urine Negative (Negative); Urobilinogen,Urine 0.2 EU/dl (0.2)
[2023-08-01 00:13] LABS: Bacteria,Urine 1+ /lpf
[2023-08-01 01:16] VITALS: BP 152/74; PULSE 59; RESP 16; O2SAT 96
[2023-08-01 01:51] LABS: Troponin I < 0.01 ng/ml (0.00-0.034)
[2023-08-01] MEDS: ALBUTEROL-HFA 90MCG/PUFF INHALER 8GM 2 PUFF IH (02:19)
[2023-08-01 02:24] VITALS: BP 168/86; PULSE 66; RESP 20; TEMP 36.6; O2SAT 95
[2023-08-01 02:49] LABS: Reflex Lactic Add Lactic Reflex
== END 2023-08-01 02:28 | disposition home or self-care (01) ==
PROVIDERS: Emergency Medicine; Physician Assistant; Emergency Provider Emergency Medicine
DX: J44.1 Chronic obstructive pulmonary disease with (acute) exacerbation (principal); R06.2 Wheezing; R07.9 Chest pain, unspecified; R00.1 Bradycardia, unspecified; R10.30 Lower abdominal pain, unspecified; F17.210 Nicotine dependence, cigarettes, uncomplicated; E87.29 Other acidosis; E87.5 Hyperkalemia
CPT/HCPCS: 71045; 80053; 81001; 82803; 83690; 83735; 83880; 84484; 85025; 85378; 93005; 96361; 96374; 96375; 99285; J0131; J7120

== ENCOUNTER 2023-08-12 18:00 | Outpatient (CLI) | payer MEDICAID, SELFPAY ==
[2023-08-12 19:38] LABS: Basophils # 0.1 K/mm3 (0-0.2); Basophils % 0.7 % (0.1-2.0); Eosinophils # 0.2 K/mm3 (0.0-0.4); Eosinophils % 1.7 % (0.1-12.0); Hemoglobin 14.9 g/dL (12.2-16.2); Lymphocytes # 1.7 K/mm3 (0.7-4.5); Lymphocytes % 14.1 % (10-50); Mean Corpuscular HGB Conc 31.7 g/dL (31.8-35.4); Mean Corpuscular Hemoglobin 29.1 pg (27.0-31.2); Mean Corpuscular Volume 91.6 fl (81-99); Mean Platelet Volume 8.8 fl (7.4-10.4); Monocytes # 0.8 K/mm3 (0.1-1.0); Monocytes % 6.7 % (1.7-9.3); Neutrophils # 9.2 K/mm3 (1.8-7.8); Neutrophils % 76.8 % (37.0-80.0); Platelet Count 293 K/mm3 (142-424); Red Blood Count 5.13 M/mm3 (4.20-5.40); Red Cell Distribution Width 14.4 % (11.5-17.5)
[2023-08-12 20:09] LABS: Alanine Aminotransferase 25 U/L (12-78); Albumin Level 3.8 g/dl (3.5-5.0); Alkaline Phosphatase 168 U/L (38-126); Anion Gap 14.5 mEq/L (5-15); Aspartate Amino Transferase 43 U/L (14-36); Bilirubin,Total 0.7 mg/dl (0.2-1.3); Blood Urea Nitrogen 7 mg/dl (7-17); Calcium 9.1 mg/dl (8.4-10.2); Carbon Dioxide 30 mmol/L (22.0-30.0); Chloride 98 mmol/L (98-107); Chol/HDL Ratio 3.4 (1-3.5); Cholesterol 205 mg/dl (140-200); Estimated Glomerular Filt Rate 101 ml/min (>60); GFR (African American) 123 ML/MIN (>60); Globulin 3.7 g/dL (1.3-3.2); Glucose 85 mg/dl (74-100); HDL Cholesterol 60 mg/dl (40-60); Potassium 4.5 mmoL/L (3.5-5.1); Sodium 138 mmol/L (136-145); Total Protein,Serum 7.5 g/dl (6.3-8.2); Triglycerides 96 mg/dl (30-150); VLDL Cholesterol 19 mg/dL (0-40)
[2023-08-12 20:19] LABS: Direct LDL Cholesterol 121.17 mg/dL (100-129)
[2023-08-12 20:29] LABS: 25-OH Vitamin D, Total 30.5 ng/mL (30-100)
[2023-08-12 20:40] LABS: Hemoglobin A1C 5.1 % (4.0-6.0)
[2023-08-12 20:42] LABS: Thyroid Stimulating Hormone 0.44 uIU/mL (0.465-4.68)
[2023-08-12 21:01] LABS: Erythrocyte Sedimentation Rate 15 mm/hr (0-30)
[2023-08-13 11:53] LABS: Free T4 (Free Thyroxine) 1.64 ng/dl (0.78-2.19)
[2023-08-13 14:11] LABS: HIV (1&2) Antibody Rapid NONREACTIVE
[2023-08-14 14:27] LABS: Anti-Centromere B Antibodies <0.2 AI (0.0-0.9); Anti-DNA (DS) Ab Qn 70 IU/mL (0-9); Anti-Jo-1 <0.2 AI (0.0-0.9); Anti-Smith Antibody <0.2 AI (0.0-0.9); Antichromatin Antibodies <0.2 AI (0.0-0.9); Antiscleroderma-70 Antibodies <0.2 AI (0.0-0.9); RNP Antibodies <0.2 AI (0.0-0.9); Sjogren's Anti-SS-A <0.2 AI (0.0-0.9); Sjogren's Anti-SS-B 0.5 AI (0.0-0.9)
[2023-08-14 19:32] LABS: Peripheral Smear Review Scanned Result
[2023-08-16 14:10] LABS: HCV Ab Reactive (Non Reactive)
== END 2023-08-12 23:59 | disposition home or self-care (01) ==
LOC: LAB.DROPOF 08-13 12:39
PROVIDERS: PCP Student in an Organized Health Care Education/Training Program; Visit Provider Student in an Organized Health Care Education/Training Program
DX: Z11.4 Encounter for screening for human immunodeficiency virus [HIV] (principal); Z13.220 Encounter for screening for lipoid disorders; Z13.1 Encounter for screening for diabetes mellitus; Z13.21 Encounter for screening for nutritional disorder; J44.9 Chronic obstructive pulmonary disease, unspecified; I10 Essential (primary) hypertension; E01.0 Iodine-deficiency related diffuse (endemic) goiter; R77.1 Abnormality of globulin; R73.9 Hyperglycemia, unspecified; Z20.5 Contact with and (suspected) exposure to viral hepatitis; F17.210 Nicotine dependence, cigarettes, uncomplicated
CPT/HCPCS: 80050; 80053; 80061; 82306; 83036; 84439; 84443; 85025; 85651; 86140; 86225; 86235

== ENCOUNTER 2023-08-22 07:57 | Outpatient (CLI) | payer MEDICAID, SELFPAY ==
--- NOTE | 2023-08-22 09:12 | MM_ITS ---
PROCEDURE INFORMATION: Exam: MG Bilateral Screening 3D Mammography Exam date and time: 08/22/2023 9:25 AM Age: 62 years old Clinical indication: Screening mammogram TECHNIQUE: Imaging protocol: Bilateral Screening tomosynthesis and 2D mammography including computer-aided detection (CAD) when performed. COMPARISON: No relevant prior studies available. FINDINGS: MAMMOGRAPHY: Breast composition: There are scattered areas of fibroglandular density. Mass: None. Architectural distortion: No new or suspicious architectural distortion. Calcifications: No new or suspicious calcifications are present Asymmetric density: No new or suspicious asymmetric density is present Skin thickening: None. Axillary adenopathy: None. IMPRESSION: No mammographic evidence of malignancy. Recommend annual screening mammography unless otherwise clinically indicated. ASSESSMENT: BI-RADS category 1: Negative.
== END 2023-08-22 23:59 | disposition home or self-care (01) ==
LOC: RT 07:57
PROVIDERS: PCP Student in an Organized Health Care Education/Training Program; Visit Provider Student in an Organized Health Care Education/Training Program
DX: Z12.31 Encounter for screening mammogram for malignant neoplasm of breast (principal); R06.00 Dyspnea, unspecified; J44.9 Chronic obstructive pulmonary disease, unspecified; F17.210 Nicotine dependence, cigarettes, uncomplicated
CPT/HCPCS: 77063; 77067; 94060; 94727; 94729

== ENCOUNTER 2023-08-26 14:26 | Outpatient (CLI) | payer MEDICAID, SELFPAY ==
[2023-08-28 07:22] LABS: Hep A Ab, Total Negative (Negative); Hep B Core Ab, Total Negative (Negative); Hep B Surface Ab, Qual Non Reactive (.)
== END 2023-08-26 23:59 | disposition home or self-care (01) ==
LOC: LAB.DROPOF 08-27 14:27
PROVIDERS: PCP Nurse Practitioner Family; Visit Provider Nurse Practitioner Family
DX: Z20.5 Contact with and (suspected) exposure to viral hepatitis (principal)
CPT/HCPCS: 86704; 86706; 86708

== ENCOUNTER 2023-09-02 14:14 | Outpatient (CLI) | payer MEDICAID, SELFPAY ==
[2023-09-02 19:00] LABS: Basophils # 0.1 K/mm3 (0-0.2); Basophils % 0.8 % (0.1-2.0); Eosinophils # 0.1 K/mm3 (0.0-0.4); Eosinophils % 1.1 % (0.1-12.0); Hematocrit 41.6 % (37.0-47.0); Hemoglobin 13.5 g/dL (12.2-16.2); Lymphocytes # 2.3 K/mm3 (0.7-4.5); Lymphocytes % 30.9 % (10-50); Mean Corpuscular HGB Conc 32.4 g/dL (31.8-35.4); Mean Corpuscular Hemoglobin 29.7 pg (27.0-31.2); Mean Corpuscular Volume 91.7 fl (81-99); Mean Platelet Volume 9.7 fl (7.4-10.4); Monocytes # 0.7 K/mm3 (0.1-1.0); Monocytes % 8.8 % (1.7-9.3); Neutrophils # 4.4 K/mm3 (1.8-7.8); Neutrophils % 58.4 % (37.0-80.0); Platelet Count 226 K/mm3 (142-424); Red Blood Count 4.54 M/mm3 (4.20-5.40); Red Cell Distribution Width 14.3 % (11.5-17.5); White Blood Count 7.5 K/mm3 (4.8-10.8)
[2023-09-02 19:11] LABS: Alanine Aminotransferase 22 U/L (12-78); Albumin Level 3.4 g/dl (3.5-5.0); Alkaline Phosphatase 114 U/L (38-126); Anion Gap 8.1 mEq/L (5-15); Aspartate Amino Transferase 35 U/L (14-36); Bilirubin,Total 0.4 mg/dl (0.2-1.3); Blood Urea Nitrogen 13 mg/dl (7-17); Carbon Dioxide 28 mmol/L (22.0-30.0); Chloride 105 mmol/L (98-107); Estimated Glomerular Filt Rate 85 ml/min (>60); GFR (African American) 103 ML/MIN (>60); Globulin 3.4 g/dL (1.3-3.2); Glucose 74 mg/dl (74-100); Phosphorous 3.3 mg/dl (2.5-4.5); Potassium 4.1 mmoL/L (3.5-5.1); Sodium 137 mmol/L (136-145); Total Protein,Serum 6.8 g/dl (6.3-8.2)
[2023-09-02 19:25] LABS: Free Thyroxine Index 2.9 ug/dL (5.93-13.13); T4 (Thyroxine) 11.1 ug/dl (5.53-11.0); Triiodothryronine (T3) Uptake 26 % (23.5-40.5)
[2023-09-02 19:39] LABS: Thyroid Stimulating Hormone 0.71 uIU/mL (0.465-4.68)
[2023-09-06 03:05] LABS: Tandem-R Ostase 22.9 ug/L (.)
[2023-10-13 12:01] LABS: Serial Monitoring PDF SCANNED IMAGE
== END 2023-09-02 23:59 | disposition home or self-care (01) ==
LOC: LAB.DROPOF 09-03 10:04
PROVIDERS: PCP Student in an Organized Health Care Education/Training Program; Visit Provider Student in an Organized Health Care Education/Training Program
DX: R74.8 Abnormal levels of other serum enzymes (principal); R79.89 Other specified abnormal findings of blood chemistry; D72.829 Elevated white blood cell count, unspecified; J43.9 Emphysema, unspecified; F17.210 Nicotine dependence, cigarettes, uncomplicated
CPT/HCPCS: 80050; 80053; 84080; 84100; 84436; 84443; 84479; 85025

== ENCOUNTER 2023-09-05 14:37 | Outpatient (CLI) | payer MEDICAID, SELFPAY ==
--- NOTE | 2023-09-05 14:38 | CT_ITS ---
FINAL REPORT TECHNIQUE: Thin section axial images were obtained from the lung apices to the upper abdomen by computed tomography. Reformatted images were obtained and reviewed. This study was performed with techniques to keep radiation doses al low as reasonably achievable (ALARA). Individualized dose reduction techniques using automated exposure control or adjustment of mA and/or kV according to the patient's size were employed. CLINICAL HISTORY: lung cancer screening current smoker 1ppd x 45 years hx of copd, pts mother had hx lung ca COMPARISON: CTA 01/03/2023 report FINDINGS: CHEST CT LOW DOSE CTDI vol (mGy): 2.90 DLP (mGy-cm): 89.08 There is no axillary mass or adenopathy. There are small mediastinal nodes. The heart is normal in size. There is no pericardial or pleural effusion. There is moderate emphysema and mild pulmonary scarring. Lung window images demonstrate a 6 mm pleural-based left lower lobe nodule best seen on image 51. This is presumed to correspond to the 6 mm nodule seen on prior exam. There is a calcified granuloma at the right lung base. Limited images of the upper abdomen are unremarkable. IMPRESSION: Lung-RADS category 2. Recommend 12 month follow up low dose chest CT. Reviewed, Interpreted and Dictated by Abdoul Baldwin III, MD Transcribed by Liliana Mancia Authenticated and [facility]
[2023-09-08 14:10] LABS: H. pylori Breath Test Negative (Negative)
== END 2023-09-05 23:59 | disposition home or self-care (01) ==
PROVIDERS: PCP Student in an Organized Health Care Education/Training Program; Visit Provider Student in an Organized Health Care Education/Training Program
DX: Z72.0 Tobacco use (principal); Z86.19 Personal history of other infectious and parasitic diseases; R10.9 Unspecified abdominal pain
CPT/HCPCS: 71271; 83013

== ENCOUNTER 2023-09-09 13:23 | Outpatient (CLI) | payer MEDICAID, SELFPAY ==
--- NOTE | 2023-09-09 13:24 | US_ITS ---
FINAL REPORT TECHNIQUE: Sonographic images of the thyroid gland were obtained in the longitudinal and transverse planes. CLINICAL HISTORY: h/o thyromegaly, abnormal thyroid labs FINDINGS: The right lobe measures 2.6 x 5.0 x 2.4 cm. The right lobe is homogeneous. There are no cystic or solid nodules. The left lobe measures 3.0 x 4.5 x 2.7 cm. The left lobe is homogeneous. There are no cystic or solid nodules. The isthmus measures 6 mm. This is normal. IMPRESSION: Enlarged thyroid, no nodule identified. Reviewed, Interpreted and Dictated by Keri Nunn MD Transcribed by Maryann Landeros Authenticated and [facility]
== END 2023-09-09 23:59 | disposition home or self-care (01) ==
LOC: RAD 13:23
PROVIDERS: PCP Student in an Organized Health Care Education/Training Program; Visit Provider Student in an Organized Health Care Education/Training Program
DX: E01.0 Iodine-deficiency related diffuse (endemic) goiter (principal); R79.89 Other specified abnormal findings of blood chemistry
CPT/HCPCS: 76536

== ENCOUNTER 2023-10-13 07:40 | Outpatient (CLI) | payer MEDICAID, SELFPAY ==
--- NOTE | 2023-10-13 07:41 | FL_ITS ---
FINAL REPORT CLINICAL HISTORY: dysphagia ft 1:24 18.57mgy FINDINGS: ESOPHAGRAM HISTORY: Dysphagia PROCEDURE: The patient ingested barium. Effervescent crystals were also administered. Spot and overhead films were obtained. Fluoro time: Not provided. minutes. Radiation exposure in Reference air Kerma: 18.57 mGy. FINDINGS: The esophagus is normal. There is no hiatal hernia. There is no gastroesophageal reflux. Peristalsis is normal. A 13 mm barium tablet passes through the esophagus and into the stomach without delay. IMPRESSION: Normal esophagram. Films reviewed, interpreted and dictated by Dr. Robin. Transcribed by Storm Andrade PA-C. Reviewed, Interpreted and Dictated by Scottie Robin MD Transcribed by NAY Solis Authenticated and [facility]
== END 2023-10-13 23:59 | disposition home or self-care (01) ==
LOC: RAD 07:41
PROVIDERS: PCP Student in an Organized Health Care Education/Training Program; Visit Provider Nurse Practitioner
DX: R13.10 Dysphagia, unspecified (principal)
CPT/HCPCS: 74220

== ENCOUNTER 2023-10-30 15:44 | Outpatient (CLI) | payer MEDICAID, SELFPAY ==
--- NOTE | 2023-10-30 15:48 | XR_ITS ---
FINAL REPORT CLINICAL HISTORY: L great toe pain following injury FINDINGS: Left great toe Two views were obtained. There is a nondisplaced fracture of the 1st distal phalanx. Mild hallux valgus deformity is identified. There are mild degenerative changes. IMPRESSION: Fracture as above. Reviewed, Interpreted and Dictated by Abdoul Baldwin III, MD Transcribed by Maryann Landeros Authenticated and [facility]
--- NOTE | 2023-10-30 15:48 | XR_ITS ---
FINAL REPORT CLINICAL HISTORY: L great toe pain following injury FINDINGS: Left foot Two views were obtained. There is a nondisplaced fracture of the 1st distal phalanx. Mild hallux valgus deformity is identified. There are mild degenerative changes. IMPRESSION: Fracture as above. Reviewed, Interpreted and Dictated by Abdoul Baldwin III, MD Transcribed by Maryann Landeros Authenticated and [facility]
== END 2023-10-30 23:59 | disposition home or self-care (01) ==
LOC: RAD 15:45
PROVIDERS: PCP Student in an Organized Health Care Education/Training Program; Visit Provider Student in an Organized Health Care Education/Training Program
DX: M79.675 Pain in left toe(s) (principal); S99.922A Unspecified injury of left foot, initial encounter
CPT/HCPCS: 73620; 73660

== ENCOUNTER 2023-11-17 09:25 | Outpatient (CLI) | payer MEDICAID, SELFPAY ==
--- NOTE | 2023-11-17 09:31 | XR_ITS ---
FINAL REPORT CLINICAL HISTORY: Fracture, follow-up COMPARISON: 10/30/2023 FINDINGS: LEFT FOOT Three views of the left foot were obtained. There is an oblique fracture involving the medial base of the first distal phalanx with no bony union at this time. The fracture is best seen on the oblique view. Mild degenerative changes are seen at the first metatarsophalangeal joint. IMPRESSION: Oblique fracture involving the medial base of the first distal phalanx without bony union. Reviewed, Interpreted and Dictated by Juan Jose Campoverde MD Transcribed by Cecille Shipley Authenticated and . [facility]
== END 2023-11-17 23:59 | disposition home or self-care (01) ==
LOC: RAD 09:26
PROVIDERS: PCP Student in an Organized Health Care Education/Training Program; Visit Provider Podiatrist
DX: M79.672 Pain in left foot (principal)
CPT/HCPCS: 73630

== ENCOUNTER 2023-11-24 11:07 | Outpatient (CLI) | payer MEDICAID, SELFPAY ==
--- NOTE | 2023-11-24 | US_ITS ---
FINAL REPORT CLINICAL HISTORY: current smoker, HTN, bilateral rest pain, bilateral claudication COMPARISON: None FINDINGS: ANKLE-BRACHIAL PRESSURE INDICES Pressure indices are as follows: RIGHT LOWER EXTREMITY: Ankle-brachial pressure index: 1.08 Comments: Normal LEFT LOWER EXTREMITY: Ankle-brachial pressure index: 1.13 Comments: Normal CONCLUSION: No evidence of significant obstructive peripheral vascular disease of the lower extremities Reviewed, Interpreted and Dictated by Scottie Robin MD Transcribed by Yajaira Sofia Authenticated and [facility]
== END 2023-11-24 23:59 | disposition home or self-care (01) ==
LOC: RT 11:08
PROVIDERS: PCP Student in an Organized Health Care Education/Training Program; Visit Provider Podiatrist
DX: R09.89 Other specified symptoms and signs involving the circulatory and respiratory systems (principal)
CPT/HCPCS: 93923

== ENCOUNTER 2024-01-12 12:43 | Day surgery (SDC) | payer MEDICAID, SELFPAY ==
[2024-01-09 14:55] VITALS: BMI 18.5
--- NOTE | 2024-01-12 13:03 | EXP.ANES.CKL ---
[facility] Disclaimer: The information contained in this section may have been updated after the patient was seen, as this information can be updated by other users. Medical History Tobacco abuse counseling Dyspnea on exertion Pulmonary emphysema COPD mixed type Dysphagia Pulmonary nodule Smoking greater than 40 pack years Tobacco use COPD (chronic obstructive pulmonary disease) Dyspnea HTN (hypertension) Hep C w/o coma, chronic Seborrheic keratosis Underweight on examination Exposure to hepatitis C COPD exacerbation Multiple pulmonary nodules Acute exacerbation of chronic obstructive pulmonary disease Abdominal pain Thyromegaly Cough Gallstones Surgical History Hx of tubal ligation History of appendectomy Family History Other No significant family history Social History Smoking Status: Current every day smoker tobacco type: cigarettes packs per day: 1 alcohol intake: never substance use type: denies use current occupational status: employed Travel in the last 8 weeks: None [facility] Anesthesia Checklist Patient Identification Patient Identification: Arm Band and Verbal (Name & ) Structural Data Admitted From: Home Planned Operative Procedure/s: EGD Consent for Planned Operative Procedure(s) Verified: Yes Verified Documents: Surgical Consent and History and Physical NPO Status Verified Time NPO: 00:00 Additional verifications Anesthesia Reactions: No Airway Assessment Mallampati Score:: Class II C-Spine Mobility Assessed: Yes TMJ Mobility Assessed: Yes Dentition: Dentures-poor fitting (removed) Neurological Assessment Level of Consciousness: Awake Hx Seizures: No Numbness or tingling in extremities: No Anesthesia Plan Anesthesia Risk discussed: Yes Anesthesia Plan: Verified ASA Class: II Anesthesia Type: MAC
[2024-01-12 13:08] VITALS: BP 141/74; PULSE 53; RESP 18; TEMP 36.3; O2SAT 98
[2024-01-12] MEDS: LACTATED RINGERS 1000ML 1,000 ML 25 ML IV (13:14)
[2024-01-12 13:47] VITALS: O2SAT 100
--- NOTE | 2024-01-12 13:49 | P.HP_ITS ---
History of Present Illness *Admission Date: 01/12/24 *Reason for visit:: Dysphagia *History of present illness: Mrs. Morales is a 63-year-old female who is here for diagnostic upper endoscopy/therapeutic upper endoscopy secondary to dysphagia. The examination is deemed medically necessary for EGD. The patient has been seen, interviewed and examined prior to the procedure by both myself and the anesthesia provider. [facility] Disclaimer: The information contained in this section may have been updated after the patient was seen, as this information can be updated by other users. Medical History (Updated 01/12/24 @ 13:51 by Jose Vincent II, MD) Acid reflux Tobacco abuse counseling Dyspnea on exertion Pulmonary emphysema COPD mixed type Dysphagia Pulmonary nodule Smoking greater than 40 pack years Tobacco use COPD (chronic obstructive pulmonary disease) Dyspnea HTN (hypertension) Hep C w/o coma, chronic Seborrheic keratosis Underweight on examination Exposure to hepatitis C COPD exacerbation Multiple pulmonary nodules Acute exacerbation of chronic obstructive pulmonary disease Abdominal pain Thyromegaly Cough Gallstones Surgical History Hx of tubal ligation History of appendectomy Family History Other No significant family history Social History (Updated 01/12/24 @ 13:04 by Hellen Hooker RN) Smoking Status: Current every day smoker tobacco type: cigarettes packs per day: 1 alcohol intake: never substance use type: denies use current occupational status: employed Travel in the last 8 weeks: None caffeine: Yes Other Medical History Have you received the Pneumonia Vaccine: No Review of Systems Review of Systems Review of systems (narrative): Negative *Cardiovascular Comments: Negative *Gastrointestinal Comments: Negative *Genitourinary Comments: Negative *Musculoskeletal Comments: Negative *Neurologic Comments: Negative Meds Home Medications and Allergies Home Medications ?Medication ?Instructions ?Recorded ?Confirmed ?Type ipratropium 20 mcg-albuterol 100 1 puff inhalation Q4H PRN 01/03/23 01/12/24 Rx mcg/actuation mist for inhalation shortness of breath or wheezing #4 grams buprenorphine 8 mg-naloxone 2 mg 2 tab sublingual DAILY 08/12/23 01/12/24 History sublingual tablet albuterol sulfate 90 mcg/actuation 1 inh inhalation QID PRN shortness 10/30/23 01/12/24 Rx aerosol inhaler of breath or wheezing #6.7 grams melatonin 10 mg tablet 10 mg PO HS PRN sleep #30 tabs 10/30/23 01/12/24 Rx glycopyrrolate 9 mcg-formoterol 2 puff inhalation BID 90 days 11/24/23 01/12/24 Rx 4.8 mcg HFA aerosol inhaler #10.7 grams (Bevespi Aerosphere) nicotine (polacrilex) 2 mg gum 2 mg buccal Q4H PRN nicotine 11/24/23 01/12/24 Rx cravings #100 ea calcium 600 mg (as 1 cap PO DAILY #90 caps 12/08/23 01/12/24 Rx carbonate)-vitamin D3 25 mcg (1,000 unit) capsule ibuprofen 800 mg tablet 800 mg PO Q8H #30 tabs 12/08/23 01/12/24 Rx lisinopril 10 mg tablet 10 mg PO DAILY #30 tabs 12/08/23 01/12/24 Rx benzonatate 100 mg capsule 100 mg PO BID PRN cough #20 caps 01/08/24 01/12/24 Rx cefdinir 300 mg capsule 300 mg PO BID #20 caps 01/08/24 01/12/24 Rx triamcinolone acetonide 0.5 % 1 applic topical BID #15 grams 01/08/24 01/12/24 Rx topical cream methylprednisolone 4 mg tablets in 4 mg PO PER PKG DIR 01/12/24 01/12/24 History a dose pack New Prescriptions to Start Prescriptions: Allergies Allergy/AdvReac Type Severity Reaction Status Date / Time No Known Allergies Allergy Verified 01/12/24 13:04 Exam Data for Last 24 hours Vital signs and Labs for Last 24 Hours: Temp Pulse Resp BP Pulse Ox O2 Del Method 97.4 F L 53 L 18 141/74 H 98 Room Air 01/12/24 13:08 01/12/24 13:08 01/12/24 13:08 01/12/24 13:08 01/12/24 13:08 01/12/24 13:08 I & O for Last 24 hours: Intake & Output 01/09/24 01/10/24 01/11/24 01/12/24 23:59 23:59 23:59 23:59 Weight 108 lb *Routine HEENT Exam Head: Present normocephalic Eye: Present EOMI and PERRL ENT: Present mucous membranes moist *Routine Neck Exam Neck: Present supple *Routine Respiratory Exam Respiratory: Present CTA bilaterally *Routine Cardiovascular Exam Cardiovascular: Present RRR *Routine Abdominal Exam Abdominal: Present soft and normoactive bowel sounds; Absent tenderness *Routine Rectal Exam Rectal:: deferred *Routine Genitalia Exam Genitalia:: deferred *Routine Extremities Exam Extremities: Absent cyanosis, clubbing or edema *Routine Skin Exam Skin: Present warm; Absent rash *Routine Neurological Exam Neurological: Present alert and oriented X3 Assessment and Plan *Assessment and plan (1) Dysphagia: Status: Acute Qualifiers: Dysphagia type: unspecified Qualified Code(s): R13.10 - Dysphagia, unspecified Category: Medical Code(s): R13.10 - Dysphagia, unspecified (2) Heartburn: Status: Acute Category: Medical Code(s): R12 - Heartburn (3) GERD (gastroesophageal reflux disease): Status: Acute Category: Medical Code(s): K21.9 - Gastro-esophageal reflux disease without esophagitis (4) Painful swallowing: Status: Acute Category: Medical Code(s): R13.10 - Dysphagia, unspecified Plan A/P: 1. Dysphagia, heartburn, painful swallowing is the preprocedural diagnosis. The patient will be anesthetized/sedated using MAC sedation. The patient has been seen and examined. Cardiac and lung assessment prior to the examination is stable. Proceed with planned upper endoscopy
--- NOTE | 2024-01-12 13:51 | P.PCN_ITS ---
[facility] Procedure Note Date: 01/12/24 Time: 14:02 Procedure Note:: Upper Endoscopy Procedure Report: Esophagogastroduodenoscopy with cold biopsies and TTS balloon dilation Endoscopost: Jose Vincent II, MD Referring Physician: Miguelina Castillo PA-C Date of Procedure: January 12, 2024 Equipment: Olympus GIF 190 standard upper endoscope Sedation: MAC sedation Indications: Mrs. Morales is a 63-year-old female with dysphagia for more than a year. She reports solid food dysphagia (over liquids) and feels as if this gets hung in the lower retrosternal region. This is often painful with painful swallowing and requires liquids to push food bolus down. She does have moderate heartburn and reflux. She takes Tums, Rolaids and Prilosec as needed. She reports no dyspepsia, bloating or belching. She did have an EGD a couple of years ago at which time the esophagus was dilated. Procedure: Prior to the procedure, a history and physical exam was performed, and patient's medications and allergies were reviewed. The risks, benefits and alternatives of the sedation and procedure were discussed with the patient. All questions were answered and informed consent was obtained. The patient was brought to the procedure room. Patient identification and proposed procedure were verified by the physician and the nurse. The patient was placed in a left lateral decubitus position and the scope was passed under direct vision. Throughout the procedure, the patient's blood pressure, pulse, and oxygen saturations were monitored continuously. The upper GI endoscopy was accomplished without difficulty. The patient tolerated the procedure well. Findings: The scope was passed directly into the upper esophagus and advanced to the third portion of the duodenum. The post bulbar duodenum and duodenal bulb were normal with normal mucosa and conniventes. There was mild scalloping in the first portion so biopsies were obtained from the duodenum to rule out celiac. The scope was withdrawn through a normal duodenal bulb and pylorus into the stomach. There was moderate linear reactive gastropathy and mild chronic gastritis. Biopsies were taken from the lesser curvature to rule out H. pylori. Upon retroflexion there was a small 2 cm hiatal hernia. The fundus of the stomach was grossly normal. The scope was then withdrawn into the esophagus. There was a serrated Z-line and biopsies were taken at the GE junction. There was no evidence of reflux esophagitis or Ewing's. There were tertiary contractions and evidence of moderate esophageal dysmotility. The entire esophagus was dilated to 60 [place]/20 mm with a TTS hydrostatic balloon. There was some resistance at the cricopharyngeus. The remainder of the esophageal mucosa was normal. Impression: 1. Cricopharyngeal spasm status post dilation to 20 mm 2. Nonerosive GERD with moderate esophageal dysmotility and small 2 cm hiatal hernia 3. Moderate linear reactive gastropathy of antrum and mild chronic gastritis Plan: I will follow-up the biopsies. I do feel that her dysphagia is possibly functional due to the esophageal dysmotility. We will discuss dietary measures and treatment options.
[2024-01-12 14:03] VITALS: BP 100/46; PULSE 72; RESP 16; TEMP 36.7; O2SAT 98
[2024-01-12 14:13] VITALS: BP 106/64; PULSE 65; RESP 16; O2SAT 97
[2024-01-12 14:23] VITALS: BP 127/69; PULSE 70; RESP 16; O2SAT 98
[2024-01-12 14:33] VITALS: BP 131/78; PULSE 72; RESP 18; O2SAT 97
== END 2024-01-12 14:40 | disposition home or self-care (01) ==
PROVIDERS: PCP Student in an Organized Health Care Education/Training Program; Visit Provider Internal Medicine Gastroenterology
PROC: 0DJ08ZZ Inspection of Upper Intestinal Tract, Via Natural or Artificial Opening Endoscopic (ICD-10-PCS; CPT 43235; principal; 2024-01-12 14:00)
DX: R13.10 Dysphagia, unspecified (principal); R12 Heartburn; K21.9 Gastro-esophageal reflux disease without esophagitis; J39.2 Other diseases of pharynx; K44.9 Diaphragmatic hernia without obstruction or gangrene; K22.4 Dyskinesia of esophagus; K31.9 Disease of stomach and duodenum, unspecified; K29.70 Gastritis, unspecified, without bleeding; Z72.0 Tobacco use
CPT/HCPCS: 43239; 43249; C1726; J7120

== ENCOUNTER 2024-02-03 09:00 | Outpatient (CLI) | payer MEDICAID, SELFPAY | END 2024-02-03 23:59 | disposition home or self-care (01) | LOC: LAB.DROPOF 02-04 10:04 | PROVIDERS: PCP Nurse Practitioner; Visit Provider Nurse Practitioner | DX: B35.1 Tinea unguium (principal) | CPT/HCPCS: 87102; 87206; 87220 ==

== ENCOUNTER 2024-04-07 09:50 | Outpatient (CLI) | payer MEDICAID, SELFPAY ==
[2024-04-07 19:55] LABS: Alanine Aminotransferase 22 U/L (12-78); Albumin Level 4.1 g/dl (3.5-5.0); Albumin/Globulin Ratio 1.5 (1.1-1.8); Alkaline Phosphatase 73 U/L (38-126); Anion Gap 15.6 mEq/L (5-15); Aspartate Amino Transferase 39 U/L (14-36); Bilirubin,Total 0.6 mg/dl (0.2-1.3); Blood Urea Nitrogen 12 mg/dl (7-17); Calcium 9.5 mg/dl (8.4-10.2); Carbon Dioxide 25 mmol/L (22.0-30.0); Chloride 105 mmol/L (98-107); Estimated Glomerular Filt Rate 101 ml/min (>60); GFR (African American) 122 ML/MIN (>60); Globulin 2.8 g/dL (1.3-3.2); Glucose 97 mg/dl (74-100); Potassium 4.6 mmoL/L (3.5-5.1); Sodium 141 mmol/L (136-145); Total Protein,Serum 6.9 g/dl (6.3-8.2)
== END 2024-04-07 23:59 | disposition home or self-care (01) ==
LOC: LAB.DROPOF 04-08 11:59
PROVIDERS: PCP Family Medicine; Visit Provider Family Medicine
DX: B18.2 Chronic viral hepatitis C (principal)
CPT/HCPCS: 80053; 87522